=== PATIENT | male | born 2000 | race Caucasian/White ===

== ENCOUNTER 2023-07-29 15:45 | Emergency (ER) | payer OTHER ==
[2023-07-29] MEDS ORDERED: Sodium Chloride 0.9% 10 ML Syringe FLUSH PRN (16:24)
[2023-07-29] MEDS ORDERED: Sodium Chloride 0.9% 2.5 ML Syringe FLUSH PRN (16:24)
[2023-07-29] MEDS ORDERED: Lidocaine 4% 1 each Patch TOP STA (16:25)
[2023-07-29] MEDS ORDERED: Morphine 2 MG/ML SYRINGE IVPUSH ONE ×2 (16:25→18:14)
[2023-07-29] MEDS ORDERED: Ondansetron 4 MG/2 ML SDV IVPUSH ONE (16:25)
[2023-07-29] MEDS ORDERED: Naloxone 0.4 MG/ML SDV IVPUSH PRN (16:25)
[2023-07-29 17:05] LABS: BASOPHILS ABSOLUTE AUTO 0.01 K/uL (0.00-0.20); BASOPHILS PERCENT AUTO 0.1 % (0.0-1.0); EOSINOPHILS ABSOLUTE AUTO 0.03 K/uL (0.00-0.45); EOSINOPHILS PERCENT AUTO 0.4 % (0.0-6.0); HEMATOCRIT 44.5 % (42.0-52.0); HEMOGLOBIN 15.7 g/dL (14.0-18.0); IMMATURE GRAN ABSOLUTE AUTO 0.01 K/uL (0.00-0.05); IMMATURE GRAN PERCENT AUTO 0.1 % (0.0-0.4); LYMPHOCYTES ABSOLUTE AUTO 1.52 K/uL (1.00-4.80); LYMPHOCYTES PERCENT AUTO 19.7 % (24.0-44.0); MEAN CORPUSCULAR HEMOGLOBIN 28.7 pg (28.0-32.0); MEAN CORPUSCULAR HGB CONC 35.3 g/dL (32.0-36.0); MEAN CORPUSCULAR VOLUME 81.4 fL (83.0-99.0); MEAN PLATELET VOLUME 9.3 fL (9.4-12.4); MONOCYTES PERCENT AUTO 5.2 % (0.0-8.0); NEUTROPHILS ABSOLUTE AUTO 5.73 K/uL (1.80-7.70); NEUTROPHILS PERCENT AUTO 74.5 % (41.0-71.0); PLATELET COUNT,PLT 286 K/uL (150-400); RED BLOOD CELL COUNT 5.47 M/uL (4.52-5.90)
[2023-07-29 17:33] LABS: A/G RATIO 1.4 (0.9-1.6); ALBUMIN 4.9 g/dL (3.4-5.0); BILIRUBIN TOTAL 1.2 mg/dL (0.2-1.0); CALCIUM 9.5 mg/dL (8.5-10.1); CARBON DIOXIDE,CO2 27.6 mmol/L (21.0-32.0); EST CRCL DRUG DOSING (CG) 113.4 mL/min; POTASSIUM,K 3.9 mmol/L (3.5-5.1); PROTEIN TOTAL,TP 8.3 g/dL (6.4-8.2)
[2023-07-29] MEDS ORDERED: Iopamidol 755 MG/ML 500 ML Multipack Bottle IVPUSH STA ×2 (18:08→19:47)
[2023-07-29] MEDS ORDERED: Acetaminophen/HYDROcodone 325-5 MG Tab PO ONE (23:20)
== END 2023-07-29 23:30 | disposition home or self-care (01) ==
LOC: MW.ED 15:45
DX: M79.651 Pain in right thigh (principal); M25.551 Pain in right hip; W17.89XA Other fall from one level to another, initial encounter; Y92.65 Oil rig as the place of occurrence of the external cause
CPT/HCPCS: 36415; 70450; 71260; 72125; 72128; 72131; 73552; 74177; 80053; 83690; 85025; 96374; 96375; 96376; 99284; A9270; J2270; J2405; Q9967; 99283